=== PATIENT | female | born 1995 | race Caucasian/White ===

== ENCOUNTER 2017-03-26 11:40 | Emergency (ER) | payer OTHER, BC ==
[~2017-03-26] VITALS: Ht 157.5 cm; Wt 100.7 kg
[2017-03-26 11:49] VITALS: TEMP 36.9; Ht 157.5 cm; Wt 100.7 kg
--- NOTE | 2017-03-26 12:35 | EMERGENCY ROOM VISIT NOTE ---
History Report prepared by Franco: Nohemi Sims Under the Supervision of: Dr. Ravi Leahy M.D. 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 She states that she has had unusual lower abdominal pain since her in 2014. She has been evaluated for this pain by her ob-hide grader. This morning the patient woke up with lower abdominal cramping. Her LNMP was 4 weeks ago and she thought that her cramping was menstrual cramping. She went to the bathroom and had a bowel movement. The patient states that she had pain in her abdomen while she was straining to have a bowel movement. She denies having any rectal pain. Her stool was very hard. Since that initial bowel movement this morning she states that 15-20 minutes she develops sharp pain. She goes to the bathroom and defecates bright red blood. The patient rates her pain as a 7/10 in severity. She has also been experiencing nausea, chills, lightheadedness, and dizziness. She states that she feels much better since arriving in the ED. The patient denies vomiting, chest pain, shortness of breath, fever, vaginal bleeding, and chance of . She has never had bleeding issues in the past. She reports a personal history of constipation. Prior to her bowel movement this morning, she had not had a bowel movement for 1 week. She states that this is not really unusual for her. Other than her in 2014, the patient denies any previous abdominal surgeries. She denies any sick contacts. 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 Review of Systems See HPI for pertinent positives & negatives. A total of 10 systems reviewed and were otherwise negative. Past Medical & Surgical Medical Problems: (1) Dichorionic diamniotic twin , antepartum (2) Twins (3) Vaginal yeast infection Old medical records were reviewed. Nurse's notes were reviewed and I agree with. Family History No pertinent history stated. Social History Smoking Status: Current Every Day Smoker Drug Use: none Marital Status: Housing Status: lives with family Occupation Status: employed Current/Historical Medications No Active Prescriptions or Reported Meds Allergies Coded Allergies: Cefprozil (Verified Allergy, Unknown, _, 03/26/17) Physical Exam Vital Signs Date Time Temp Pulse Resp B/P Pulse Ox O2 Delivery O2 Flow Rate FiO2 03/26/17 15:00 78 18 131/76 98 03/26/17 14:00 77 18 133/76 97 Room Air 03/26/17 11:49 36.9 82 18 126/76 97 Room Air Physical Exam General: Well developed well nourished non ill appearing young female in no acute distress, breathing comfortably on room air. Normal speech HEENT: Normal cephalic atraumatic. Pupils are equal round and reactive to light. Sclerae are anicteric. Extraocular movements are intact. Oropharynx is pink with moist mucous membranes. No swelling of the mouth lips or tongue. Neck: Supple with a midline trachea. No meningeal signs or stiffness, no JVD or bruits. No Stridor. Chest: Clear to auscultation bilaterally. No wheezes or rhonchi. No increased work of breathing. Heart: regular rate and rhythm. Abdomen: Soft, minimally tender across the lower abdomen, nondistended without rebound guarding or rigidity. Rectal: Normal external examination. No anal fissures or hemorrhoids seen. Digital rectal exam reveals no masses. There was no stool. Mucus was mildly guaiac positive. Extremities: No cyanosis clubbing or edema. No calf tenderness or assymetry Spine/Back. Non tender to palpation. No CVA tenderness Skin: Good turgor without rashes. Neurologic exam: Cranial nerves two through 12 are intact. Motor and sensation are intact and symmetrical throughout. Medical Decision & Procedures Laboratory Results 03/26/17 12:19 Red Blood Count 5.15, Mean Corpuscular Volume 87.8, Mean Corpuscular Hemoglobin 30.9, Mean Corpuscular Hemoglobin Concent 35.2, Mean Platelet Volume 10.7, Neutrophils (%) (Auto) 79.7, Lymphocytes (%) (Auto) 13.3, Monocytes (%) (Auto) 6.5, Eosinophils (%) (Auto) 0.1, Basophils (%) (Auto) 0.2, Neutrophils # (Auto) 8.31, Lymphocytes # (Auto) 1.39, Monocytes # (Auto) 0.68, Eosinophils # (Auto) 0.01, Basophils # (Auto) 0.02 03/26/17 12:19 Test 03/26/17 12:00 03/26/17 12:19 Urine Color DK YELLOW Urine Appearance CLOUDY (CLEAR) Urine pH 6.0 (4.5-7.5) Urine Specific [place] 1.027 (1.000-1.030) Urine Protein NEG (NEG) Urine Glucose (UA) NEG (NEG) Urine Ketones TRACE (NEG) Urine Occult Blood NEG (NEG) Urine Nitrite NEG (NEG) Urine Bilirubin NEG (NEG) Urine Urobilinogen NEG (NEG) Urine Leukocyte Esterase NEG (NEG) Urine WBC (Auto) 1-5 /hpf (0-5) Urine RBC (Auto) 0-4 /hpf (0-4) Urine Hyaline Casts (Auto) 1-5 /lpf (0-5) Urine Epithelial Cells (Auto) >30 /lpf (0-5) Urine Bacteria (Auto) NEG (NEG) Urine Test NEG (NEG) White Blood Count 10.43 K/uL (4.8-10.8) Red Blood Count 5.15 M/uL (4.2-5.4) Hemoglobin 15.9 g/dL (12.0-16.0) Hematocrit 45.2 % (37-47) Mean Corpuscular Volume 87.8 fL (80-100) Mean Corpuscular Hemoglobin 30.9 pg (25-34) Mean Corpuscular Hemoglobin Concent 35.2 g/dl (32-36) Platelet Count 291 K/uL (130-400) Mean Platelet Volume 10.7 fL (7.4-10.4) Neutrophils (%) (Auto) 79.7 % Lymphocytes (%) (Auto) 13.3 % Monocytes (%) (Auto) 6.5 % Eosinophils (%) (Auto) 0.1 % Basophils (%) (Auto) 0.2 % Neutrophils # (Auto) 8.31 K/uL (1.4-6.5) Lymphocytes # (Auto) 1.39 K/uL (1.2-3.4) Monocytes # (Auto) 0.68 K/uL (0.11-0.59) Eosinophils # (Auto) 0.01 K/uL (0-0.5) Basophils # (Auto) 0.02 K/uL (0-0.2) RDW Standard Deviation 42.0 fL (36.4-46.3) RDW Coefficient of Variation 13.1 % (11.5-14.5) Immature Granulocyte % (Auto) 0.2 % Immature Granulocyte # (Auto) 0.02 K/uL (0.00-0.02) Anion Gap 7.0 mmol/L (3-11) Est Creatinine Clear Calc Drug Dose 102.3 ml/min Estimated GFR () 97.8 Estimated GFR (Non- 84.4 BUN/Creatinine Ratio 13.8 (10-20) Calcium Level 8.9 mg/dl (8.5-10.1) Total Bilirubin 0.4 mg/dl (0.2-1) Direct Bilirubin < 0.1 mg/dl (0-0.2) Aspartate Amino Transf (AST/SGOT) 14 U/L (15-37) Alanine Aminotransferase (ALT/SGPT) 17 U/L (12-78) Alkaline Phosphatase 105 U/L (45-117) Total Protein 7.4 gm/dl (6.4-8.2) Albumin 3.9 gm/dl (3.4-5.0) Lipase 75 U/L (73-393) Laboratory studies as stated above per my review. Medications Administered Medications (Trade) Dose Ordered Sig/David Route Start Time Stop Time Status Last Admin Dose Admin Sodium Chloride 1,000 ml @ 999 mls/hr Q1H1M STAT IV 03/26/17 12:50 03/26/17 13:50 DC 03/26/17 13:02 999 MLS/HR Sodium Chloride (Nss 1000ml) 1,000 ml @ 200 mls/hr Q5H ONCE IV 03/26/17 12:50 03/26/17 15:15 DC 03/26/17 13:03 200 MLS/HR ED Course 1159: Past medical records reviewed. The patient was evaluated in room A3, and a complete history and physical examination were performed. 1250: NSS 1000 ml @ 200 mls/hr IV, NSS 1000 ml @ 999 mls/hr IV 1341: At this time I performed a rectal examination in the presence of a female nurse director recreation center. Please see the physical examination for my findings. 1439: I reassessed the patient at this time. She is feeling better and resting comfortably. I discussed the results and treatment plan with the patient. I answered all pertaining questions that she had. She expressed understanding and verbalized agreement. The patient will be discharged home. Medical Decision Differential diagnoses includes constipation, anal fissures, hemorrhoid, GI bleed, infection, anemia, . Medication Reconciliation: I attest that I have personally reviewed the patient' s current medication list. Blood pressure Screening: Patient was found to have normal blood pressure on screening and does not require follow-up. This patient comes in as described above. She has a history of constipation as his hospital for about a week. She's had some crampy lower abdominal pain. She had a large bowel movement today and since then has had some blood per rectum that was bright red. She has no rectal pain. On exam, she has minimal lower tenderness no peritonitis. IV access established and blood work was obtained. She has no white count or fever to suggest infection. She has no evidence of anemia with a hemoglobin is 14 range. She has no acute electrolyte or metabolic abnormalities. She is not . She was hydrated with normal saline and remained stable. On rectal exam, I do not see any definite fissure or hemorrhoid however I suspect that she could have a small fissure somewhere. She feels good and would like to go home. I will have her rest and use stool softener and sitz bath. Return if increasing pain or bleeding, worsening of symptoms, fever or chills, any new problems or concerns. Impression Primary Impression: Lower abdominal pain Additional Impression: Rectal bleeding Scribe Attestation The scribe's documentation has been prepared under my direction and personally reviewed by me in its entirety. I confirm that the note above accurately reflects all work, treatment, procedures, and medical decision making performed by me. Departure Information Dispostion Home / Self-Care Prescriptions No Active Prescriptions or Reported Meds Referrals Humble Abarca M.D.([facility]) (PCP) Forms HOME CARE DOCUMENTATION FORM, IMPORTANT VISIT INFORMATION Patient Instructions My [facility] Additional Instructions Rest. Use a warm sitz bath if needed Use stool softeners as needed Return if: Increasing pain or bleeding, worsening of symptoms, fever or chills, any new problems or concerns Follow-up with your doctor in one or 2 days for recheck Problem Qualifiers
[2017-03-26] MEDS ORDERED: SODIUM CHLORIDE 0.9% 1000ML 1,000 ML IV ONE (12:50)
[2017-03-26] MEDS ORDERED: SODIUM CHLORIDE 0.9% 1000ML 1,000 ML IV STA (12:50)
[2017-03-26 12:59] LABS: BASO % 0.2 %; BASO ABS # 0.02 K/uL (0-0.2); COMPLETE YES; EOS % 0.1 %; HEMATOCRIT 45.2 % (37-47); IG% 0.2 %; LYMPH % 13.3 %; LYMPH ABS # 1.39 K/uL (1.2-3.4); MEAN CELL VOLUME 87.8 fL (80-100); MEAN CORPUSCULAR HEMOGLOBIN 30.9 pg (25-34); MEAN CORPUSCULAR HGB CONC 35.2 g/dl (32-36); MEAN PLATELET VOLUME 10.7 fL (7.4-10.4); MONO % 6.5 %; NEUT % 79.7 %; PLATELET COUNT 291 K/uL (130-400); RED BLOOD COUNT 5.15 M/uL (4.2-5.4); WHITE BLOOD COUNT 10.43 K/uL (4.8-10.8)
[2017-03-26 13:18] LABS: BLOOD UREA NITROGEN 13 mg/dl (7-18); BUN/CREATININE RATIO 13.8 (10-20); CALCIUM 8.9 mg/dl (8.5-10.1); CARBON DIOXIDE 26 mmol/L (21-32); CHLORIDE 108 mmol/L (98-107); CREATININE 0.95 mg/dl (0.60-1.20); GLUCOSE 100 mg/dl (70-99); POTASSIUM 4.2 mmol/L (3.5-5.1); SODIUM 141 mmol/L (136-145)
[2017-03-26 13:21] LABS: ALKALINE PHOSPHATASE 105 U/L (45-117); ALT/SGPT 17 U/L (12-78); AST/SGOT 14 U/L (15-37)
[2017-03-26 13:29] LABS: URINE APPEARANCE CLOUDY (CLEAR); URINE COLOR DK YELLOW; URINE EPITHELIAL CELL AUTO >30 /lpf (0-5); URINE NITRITE NEG (NEG); URINE SPECIFIC GRAVITY 1.027 (1.000-1.030); UROBILINOGEN NEG (NEG)
[2017-03-26 13:34] LABS: MANUAL MICROSCOPIC REQUIRED? NO; REVIEW REQ? NO; URINE BILIRUBIN NEG (NEG)
[2017-03-26 15:00] VITALS: BP 131/76; PULSE 78; O2SAT 98
== END 2017-03-26 14:57 | disposition home or self-care (01) ==
LOC: C.EDB 11:42 → C.EDA 14:57
DX: R10.30 Lower abdominal pain, unspecified (principal); K62.5 Hemorrhage of anus and rectum; F17.210 Nicotine dependence, cigarettes, uncomplicated

== ENCOUNTER → 2017-05-18 | Outpatient (CLI) | payer OTHER, BC ==
[~2017-05-18] MED LIST: ASPI-390; LEVOIUD; MECL1TAB42 PO
[2017-05-18 09:54] LABS: CHOLESTEROL/HDL RATIO 4.4
== END | disposition home or self-care (01) ==
LOC: C.LAB1850 07:21
PROVIDERS: ATTEND Physician Assistant
DX: Z00.00 Encounter for general adult medical examination without abnormal findings (principal)

== ENCOUNTER 2017-08-01 11:48 | Emergency (ER) | payer OTHER, BC ==
[2017-08-01 11:52] VITALS: TEMP 36.5; Ht 154.9 cm
--- NOTE | 2017-08-01 13:27 | EMERGENCY ROOM VISIT NOTE ---
History First contact with patient: 13:15 Chief Complaint: DIZZY Stated Complaint: DIZZY, BLURRY VISION, SHAKING Nursing Triage Summary: pt states she feels dizzy, had the rex placed approx 6 weeks and feels this would be the week she gets her period and that it is related to same. Denies fall or injury. History of Present Illness The patient is a 21 year old female who presents to the Emergency Room with complaints of dizziness x 1 week. She states that for the past week the patient has been suffering from intermittent dizziness. The patient notes that the dizziness can occur at any time even sitting and she notices it in particular at work when she is looking at a screen with her glasses for a long period of time. She does not have headache associated with the dizziness however she "feels like my head is big". Worsening dizziness with turning head left or right. She has occasional sharp pains in the back of the head but this is self limited and only lasts a couple of seconds. She has never had any N&V, abdominal pain, chest pain, palpitations with these episodes. She had a mirena placed 6 weeks prior and she has had intermittent heavy bleeding with large clots and hourly tampon changes. She has follow up for Mirena on Sunday. She has no history of arrhythmias or heart problems. Notes she has no diagnosed history of depression but "feels like I should be treated for this." Also notes a history of anxiety. Review of Systems a 10 point review of systems was completed and was negative aside from above Past Medical/Surgical History Medical Problems: (1) Dichorionic diamniotic twin , antepartum (2) Twins (3) Vaginal yeast infection Family History Cancer Diabetes mellitus Heart disease Hypertension Social History Smoking Status: Current Every Day Smoker Smokeless Tobacco Use: No Alcohol Use: occasionally Drug Use: none Marital Status: Housing Status: lives with family Occupation Status: employed Current/Historical Medications Scheduled Meclizine Hcl (Meclizine Hcl), 1 TAB PO TID Miscellaneous Medications Serwuyc-Ivcrdsyqdpcco-Bfszgshr (Excedrin Migraine) Levonorgestrel (Iud) (Mirena) Allergies Coded Allergies: Cefprozil (Verified Allergy, Unknown, _, 03/26/17) Physical Exam Vital Signs Date Time Temp Pulse Resp B/P (MAP) Pulse Ox O2 Delivery O2 Flow Rate FiO2 08/01/17 15:05 08/01/17 15:01 52 16 116/74 99 Room Air 59 129/85 56 124/75 08/01/17 13:58 69 18 118/77 98 Room Air 08/01/17 11:52 36.5 69 16 127/84 98 Room Air Physical Exam General: ambulatory, not in acute distress, obese Skin: no rashes noted, no suspicious lesions, no areas of inflammations/ lacerations/ erythema noted CVS: S1/ S2 noted, RRR, no rubs/ murmurs noted, no cyanosis RVS: Clear throughout bilaterally, not in acute respiratory distress, no wheezing/ rales/ crackles noted ENT: no erythema/ injection/ ulcerations noted in the pharynx, no lymphadenopathy Neck: Thyroid is not palpable, inspection WNL, full ROM of neck ABD: BSx4, no pain/ tenderness on palpation, no organomegaly MSK: inspection of all limbs WNL, motor and sensation intact in all limbs, no swelling/ pain on palpation of joints NVS: CN ii-xii WNL, PERRL, EOMI, sensation intact in all extremities, DTR +2 Lymph: No lymphadenopathy palpable Medical Decision & Procedures Laboratory Results 08/01/17 13:35 Red Blood Count 5.10, Mean Corpuscular Volume 87.5, Mean Corpuscular Hemoglobin 29.4, Mean Corpuscular Hemoglobin Concent 33.6, Mean Platelet Volume 11.3, Neutrophils (%) (Auto) 68.5, Lymphocytes (%) (Auto) 22.8, Monocytes (%) (Auto) 7.3, Eosinophils (%) (Auto) 0.9, Basophils (%) (Auto) 0.2, Neutrophils # (Auto) 6.05, Lymphocytes # (Auto) 2.02, Monocytes # (Auto) 0.65, Eosinophils # (Auto) 0.08, Basophils # (Auto) 0.02 08/01/17 13:35 Test 08/01/17 13:30 08/01/17 13:35 Urine Color YELLOW Urine Appearance CLEAR (CLEAR) Urine pH 5.5 (4.5-7.5) Urine Specific [place] 1.011 (1.000-1.030) Urine Protein NEG (NEG) Urine Glucose (UA) NEG (NEG) Urine Ketones NEG (NEG) Urine Occult Blood NEG (NEG) Urine Nitrite NEG (NEG) Urine Bilirubin NEG (NEG) Urine Urobilinogen NEG (NEG) Urine Leukocyte Esterase NEG (NEG) Urine Test NEG (NEG) White Blood Count 8.85 K/uL (4.8-10.8) Red Blood Count 5.10 M/uL (4.2-5.4) Hemoglobin 15.0 g/dL (12.0-16.0) Hematocrit 44.6 % (37-47) Mean Corpuscular Volume 87.5 fL (80-100) Mean Corpuscular Hemoglobin 29.4 pg (25-34) Mean Corpuscular Hemoglobin Concent 33.6 g/dl (32-36) Platelet Count 288 K/uL (130-400) Mean Platelet Volume 11.3 fL (7.4-10.4) Neutrophils (%) (Auto) 68.5 % Lymphocytes (%) (Auto) 22.8 % Monocytes (%) (Auto) 7.3 % Eosinophils (%) (Auto) 0.9 % Basophils (%) (Auto) 0.2 % Neutrophils # (Auto) 6.05 K/uL (1.4-6.5) Lymphocytes # (Auto) 2.02 K/uL (1.2-3.4) Monocytes # (Auto) 0.65 K/uL (0.11-0.59) Eosinophils # (Auto) 0.08 K/uL (0-0.5) Basophils # (Auto) 0.02 K/uL (0-0.2) RDW Standard Deviation 41.4 fL (36.4-46.3) RDW Coefficient of Variation 12.9 % (11.5-14.5) Immature Granulocyte % (Auto) 0.3 % Immature Granulocyte # (Auto) 0.03 K/uL (0.00-0.02) Anion Gap 7.0 mmol/L (3-11) Estimated GFR () 107.3 Estimated GFR (Non- 92.6 BUN/Creatinine Ratio 17.8 (10-20) Calcium Level 9.4 mg/dl (8.5-10.1) Magnesium Level 2.1 mg/dl (1.8-2.4) Troponin I < 0.015 ng/ml (0-0.045) Medications Administered Medications (Trade) Dose Ordered Sig/David Route Start Time Stop Time Status Last Admin Dose Admin Sodium Chloride 1,000 ml @ 999 mls/hr Q1H1M ONCE IV 08/01/17 13:30 08/01/17 14:30 DC 08/01/17 13:30 999 MLS/HR Meclizine HCl (Antivert Tab) 25 mg NOW STAT PO 08/01/17 14:59 08/01/17 15:00 DC 08/01/17 15:07 25 MG ECG Indication: other Rate (beats per minute): 54 Rhythm: sinus bradycardia Findings: no ectopy Comparison ECG Date: no prior available Change: T wave inversion noted in V2 ED Course 1330: Patient was assessed and evaluated by resident and appropriate w/u ordered 1345: NSS 1 L @ 999/h x1 1440: Patient reassessed and no improvement of symptoms after NSS 1450: Meclizine 25 mg PO x 1 1515: Discussed discharge with patient and agreeable Medical Decision Differential diagnosis includes but is not limited to dehydration, anemia, PE, TX, worsening myopia, UTI, . This is a 21 yo f suffering from intermittent dizziness. The patient was evaluated and in CBC no note of anemia or leukocytosis. This is reassuring considering the patient has been suffering from intermittent heavy vaginal bleeding. The BMP was unremarkable and no ÁNGEL or elevation in BUN. Magnesium was WNL and troponin was negative which is reassuring considering patient is low risk and she has been suffering from these symptoms for a week. UA did not reveal a UTI. Patient was reassessed after NSS was administered and no improvement of symptoms. Patient additionally added that dizziness is worth with movement, patient most likely suffering from BPPV and patient was d/c home with Meclizine script and recommendations for close follow up with PCP. Impression Primary Impression: Dizziness Additional Impression: BPPV (benign paroxysmal positional vertigo) Departure Information Prescriptions Meclizine Hcl (MECLIZINE HCL) 25 Mg Tab 1 TAB PO TID for 30 Days, #90 TAB Prov: Zoila Greenberg MD 08/01/17 Referrals Елена Medina CRNP (PCP) Patient Instructions My [facility] Problem Qualifiers
[2017-08-01] MEDS ORDERED: SODIUM CHLORIDE 0.9% 1000ML 1,000 ML IV ONE (13:30)
[2017-08-01] MEDS ORDERED: ASPI-390 (13:54)
[2017-08-01] MEDS ORDERED: LEVOIUD (13:54)
[2017-08-01 14:03] LABS: URINE APPEARANCE CLEAR (CLEAR); URINE BILIRUBIN NEG (NEG); URINE COLOR YELLOW; URINE NITRITE NEG (NEG); URINE PH 5.5 (4.5-7.5); URINE SPECIFIC GRAVITY 1.011 (1.000-1.030); UROBILINOGEN NEG (NEG); ZZUR CULT IF INDIC CLEAN CATCH NO
[2017-08-01 14:11] LABS: BASO % 0.2 %; BASO ABS # 0.02 K/uL (0-0.2); COMPLETE YES; EOS % 0.9 %; HEMATOCRIT 44.6 % (37-47); IG% 0.3 %; LYMPH % 22.8 %; LYMPH ABS # 2.02 K/uL (1.2-3.4); MEAN CELL VOLUME 87.5 fL (80-100); MEAN CORPUSCULAR HEMOGLOBIN 29.4 pg (25-34); MEAN CORPUSCULAR HGB CONC 33.6 g/dl (32-36); MEAN PLATELET VOLUME 11.3 fL (7.4-10.4); MONO % 7.3 %; NEUT % 68.5 %; PLATELET COUNT 288 K/uL (130-400); WHITE BLOOD COUNT 8.85 K/uL (4.8-10.8)
[2017-08-01 14:13] LABS: PREG INTERNAL NEGATIVE QC NEG CLEAR BACKGROUND; PREG INTERNAL POSITIVE QC POS CONTROL LINE
[2017-08-01 14:22] LABS: BLOOD UREA NITROGEN 16 mg/dl (7-18); BUN/CREATININE RATIO 17.8 (10-20); CALCIUM 9.4 mg/dl (8.5-10.1); CARBON DIOXIDE 25 mmol/L (21-32); CHLORIDE 106 mmol/L (98-107); CREATININE 0.88 mg/dl (0.60-1.20); GLUCOSE 93 mg/dl (70-99); MAGNESIUM 2.1 mg/dl (1.8-2.4); POTASSIUM 3.9 mmol/L (3.5-5.1); SODIUM 138 mmol/L (136-145)
[2017-08-01 14:25] LABS: MANUAL MICROSCOPIC REQUIRED? NO; REVIEW REQ? NO
[2017-08-01] MEDS ORDERED: MECLIZINE HCL 25 MG TAB PO STA (14:59)
[2017-08-01 15:01] VITALS: BP 124/75; PULSE 56; O2SAT 99
[2017-08-01] MEDS ORDERED: MECL1TAB42 PO (15:23)
--- NOTE | 2017-08-01 16:00 | EMERGENCY ROOM VISIT NOTE ---
History Report prepared by Franco: Noé Conroy Under the Supervision of: Dr. Russell Koroma D.O. First contact with patient: 13:15 Chief Complaint: DIZZY Stated Complaint: DIZZY, BLURRY VISION, SHAKING Nursing Triage Summary: pt states she feels dizzy, had the rex placed approx 6 weeks and feels this would be the week she gets her period and that it is related to same. Denies fall or injury. History of Present Illness The patient is a 21 year old female who presents to the Emergency Room with complaints of intermittent dizziness that started a week ago. She notes that she had a Mirena IUD placed 6 weeks ago, and ever since then she has had occasional headaches that are short-lived. She says that she has been taking Excedrin for the headaches. The patient adds that she has had some abnormal vaginal bleeding ever since the IUD was placed. She says that for the past week , she has felt like her "head is big", and when she looks at a screen, her vision just seems off. The patient states that her dizziness is worsened with turning her head left or right. She adds that this would be the week that she would get her period. The patient denies any loss of consciousness, chest pain, nausea, vomiting or abdominal pain. Source of History: patient Onset: Past week Position: other (global - dizziness) Timing: intermittent Modifying Factors (Worsening): movement Associated Symptoms: + headache (occasional for past 6 weeks), No LOC, No chest pain, No vomiting, No abdominal pain Note: Associated symptoms: Sensation that "head is big". Vision is off, especially when looking at a screen. Review of Systems See HPI for pertinent positives & negatives. A total of 10 systems reviewed and were otherwise negative. Past Medical & Surgical Medical Problems: (1) Dichorionic diamniotic twin , antepartum (2) Twins (3) Vaginal yeast infection Family History Cancer Diabetes mellitus Heart disease Hypertension Social History Smoking Status: Current Every Day Smoker Drug Use: none Marital Status: Housing Status: lives with family Occupation Status: employed Current/Historical Medications Scheduled Meclizine Hcl (Meclizine Hcl), 1 TAB PO TID Miscellaneous Medications Zgsihzx-Lldhjwaszkqrp-Ufmvkgop (Excedrin Migraine) Levonorgestrel (Iud) (Mirena) Allergies Coded Allergies: Cefprozil (Verified Allergy, Unknown, _, 5/29/17) Physical Exam Vital Signs Date Time Temp Pulse Resp B/P (MAP) Pulse Ox O2 Delivery O2 Flow Rate FiO2 08/01/17 15:05 08/01/17 15:01 52 16 116/74 99 Room Air 59 129/85 56 124/75 08/01/17 13:58 69 18 118/77 98 Room Air 08/01/17 11:52 36.5 69 16 127/84 98 Room Air Physical Exam CONSTITUTIONAL/VITAL SIGNS: Reviewed / noted above. GENERAL: Non-toxic in appearance. INTEGUMENTARY: Warm, dry, and [place]. HEAD: Normocephalic. EYES: without scleral icterus or trauma. ENT/OROPHARYNX: clear and moist. LYMPHADENOPATHY/NECK: Is supple without lymphadenopathy or meningismus. RESPIRATORY: Lungs clear and equal. CARDIOVASCULAR: Regular rate and rhythm. GI/ABDOMEN: Soft and nontender. No organomegaly or pulsatile mass. No rebound or guarding. Normal bowel sounds. EXTREMITIES: Warm and well perfused. BACK: No CVA tenderness. NEUROLOGICAL: Intact without focal deficits. PSYCHIATRIC: normal affect. MUSCULOSKELETAL: Normally developed with good muscle tone. Medical Decision & Procedures Laboratory Results 08/01/17 13:35 Red Blood Count 5.10, Mean Corpuscular Volume 87.5, Mean Corpuscular Hemoglobin 29.4, Mean Corpuscular Hemoglobin Concent 33.6, Mean Platelet Volume 11.3, Neutrophils (%) (Auto) 68.5, Lymphocytes (%) (Auto) 22.8, Monocytes (%) (Auto) 7.3, Eosinophils (%) (Auto) 0.9, Basophils (%) (Auto) 0.2, Neutrophils # (Auto) 6.05, Lymphocytes # (Auto) 2.02, Monocytes # (Auto) 0.65, Eosinophils # (Auto) 0.08, Basophils # (Auto) 0.02 08/01/17 13:35 Test 08/01/17 13:30 08/01/17 13:35 Urine Color YELLOW Urine Appearance CLEAR (CLEAR) Urine pH 5.5 (4.5-7.5) Urine Specific [place] 1.011 (1.000-1.030) Urine Protein NEG (NEG) Urine Glucose (UA) NEG (NEG) Urine Ketones NEG (NEG) Urine Occult Blood NEG (NEG) Urine Nitrite NEG (NEG) Urine Bilirubin NEG (NEG) Urine Urobilinogen NEG (NEG) Urine Leukocyte Esterase NEG (NEG) Urine Test NEG (NEG) White Blood Count 8.85 K/uL (4.8-10.8) Red Blood Count 5.10 M/uL (4.2-5.4) Hemoglobin 15.0 g/dL (12.0-16.0) Hematocrit 44.6 % (37-47) Mean Corpuscular Volume 87.5 fL (80-100) Mean Corpuscular Hemoglobin 29.4 pg (25-34) Mean Corpuscular Hemoglobin Concent 33.6 g/dl (32-36) Platelet Count 288 K/uL (130-400) Mean Platelet Volume 11.3 fL (7.4-10.4) Neutrophils (%) (Auto) 68.5 % Lymphocytes (%) (Auto) 22.8 % Monocytes (%) (Auto) 7.3 % Eosinophils (%) (Auto) 0.9 % Basophils (%) (Auto) 0.2 % Neutrophils # (Auto) 6.05 K/uL (1.4-6.5) Lymphocytes # (Auto) 2.02 K/uL (1.2-3.4) Monocytes # (Auto) 0.65 K/uL (0.11-0.59) Eosinophils # (Auto) 0.08 K/uL (0-0.5) Basophils # (Auto) 0.02 K/uL (0-0.2) RDW Standard Deviation 41.4 fL (36.4-46.3) RDW Coefficient of Variation 12.9 % (11.5-14.5) Immature Granulocyte % (Auto) 0.3 % Immature Granulocyte # (Auto) 0.03 K/uL (0.00-0.02) Anion Gap 7.0 mmol/L (3-11) Estimated GFR () 107.3 Estimated GFR (Non- 92.6 BUN/Creatinine Ratio 17.8 (10-20) Calcium Level 9.4 mg/dl (8.5-10.1) Magnesium Level 2.1 mg/dl (1.8-2.4) Troponin I < 0.015 ng/ml (0-0.045) Laboratory results as stated above per my review. Medications Administered Medications (Trade) Dose Ordered Sig/David Route Start Time Stop Time Status Last Admin Dose Admin Sodium Chloride 1,000 ml @ 999 mls/hr Q1H1M ONCE IV 08/01/17 13:30 08/01/17 14:30 DC 08/01/17 13:30 999 MLS/HR Meclizine HCl (Antivert Tab) 25 mg NOW STAT PO 08/01/17 14:59 08/01/17 15:00 DC 08/01/17 15:07 25 MG ECG Indication: other (dizziness) Rate (beats per minute): 54 Rhythm: sinus bradycardia Findings: no ectopy, other (no acute injury) ED Course 1327: Previous medical records were reviewed. The patient was evaluated in room B5. A complete history and physical examination was performed. 1330: Ordered NSS 1000 ml @ 999 mls/hr IV. 1459: Ordered Antivert Tab 25 mg PO. 1515: On reevaluation, the patient is resting comfortably. I discussed the results and findings with the patient. She verbalized agreement of the treatment plan. She was discharged home. Medical Decision Differential includes acute coronary syndrome, myocardial infarction, CVA, TIA, anemia, infection, pneumonia, UTI, pyelonephritis, poor nutrition, dehydration, electrolyte disturbance,hypoglycemia. This is a 21-year-old female who presents to the ED with a chief complaint of off and on dizziness as well as a sensation that her head is swollen. The patient was seen in conjunction with the resident. See her notes for additional information. The patient's vital signs here are normal. Her physical exam and neuro exam was unremarkable. Orthostatic vital signs are negative. EKG shows a sinus bradycardia. CBC, troponin, PRP, urine are unremarkable. She is not based on a test. The patient was told the results. She is felt to be stable for discharge. She was treated with meclizine by mouth. She was also given a prescription for this. Medication Reconcilliation Current Medication List: was personally reviewed by me Blood Pressure Screening Patient's blood pressure: Normal blood pressure Impression Primary Impression: Dizziness Additional Impression: BPPV (benign paroxysmal positional vertigo) Scribe Attestation The scribe's documentation has been prepared under my direction and personally reviewed by me in its entirety. I confirm that the note above accurately reflects all work, treatment, procedures, and medical decision making performed by me. Departure Information Dispostion Home / Self-Care Prescriptions Meclizine Hcl (MECLIZINE HCL) 25 Mg Tab 1 TAB PO TID for 30 Days, #90 TAB Prov: Zoila Greenberg MD 08/01/17 Referrals Елена Medina CRNP (PCP) Patient Instructions My [facility] Additional Instructions You were evaluated in the ED for your dizziness. There was no findings on the labs which is reassuring. Your urine also did not indicate that there was an infection. We would like you to trial Meclizine for dizziness. This is a medication which can help control the sensation of dizziness. We would also like you to follow up with your PCP this week. If you develop worsening or changing symptoms please return to the ED Problem Qualifiers
== END 2017-08-01 15:33 | disposition home or self-care (01) ==
LOC: C.EDB 11:49
DX: H81.10 Benign paroxysmal vertigo, unspecified ear (principal); H53.8 Other visual disturbances; F17.210 Nicotine dependence, cigarettes, uncomplicated

== ENCOUNTER → 2017-08-06 | Outpatient (CLI) | payer OTHER, BC | END | disposition home or self-care (01) | LOC: C.PAPS 09:05 | PROVIDERS: ATTEND Physician Assistant | DX: Z12.4 Encounter for screening for malignant neoplasm of cervix (principal) ==

== ENCOUNTER → 2017-08-10 | Outpatient (CLI) | payer OTHER, BC ==
[2017-08-10 13:14] LABS: LYME DISEASE AB IGG NEG (NEG); LYME DISEASE AB IGM NEG (NEG)
== END | disposition home or self-care (01) ==
LOC: C.LAB1850 10:36
PROVIDERS: ATTEND Nurse Practitioner Adult Health
DX: R42 Dizziness and giddiness (principal); H53.8 Other visual disturbances

== ENCOUNTER → 2017-08-10 | Outpatient (CLI) | payer OTHER, BC ==
--- NOTE | 2017-08-10 14:13 | MAMMOGRAPHY REPORT ---
ULTRASOUND OF LEFT BREAST: 08/10/2017 CLINICAL HISTORY: The patient reports a palpable lump in her left breast for approximately 6 months, which has not noticeably changed in size over that time. COMPARISON: No prior exams were available for comparison. TECHNIQUE: Real-time targeted ultrasound of the left breast was performed. FINDINGS: Real-time, high resolution targeted ultrasound was performed of the area of the palpable l ump pointed out by the patient, in the left breast at approximately 6:00, 5 cm from the nipple. At t he site of the palpable lump there is sonographically normal fatty tissue, without evidence of a susp icious mass or other suspicious sonographic abnormality. IMPRESSION: ACR BI-RADS CATEGORY 2: BENIGN No suspicious sonographic abnormality at the site of the palpable left breast lump pointed out by the patient. There is no sonographic evidence of malignancy. Recommend clinical follow-up. The patient was verbally notified of the results. Ludivina Rodriguez M.D. /:08/10/2017 10:28:41 [employer] Worker: Charleen DIAZ)(Andrea), [facility] letter sent: Normal 1/2 BI-RADS Code: ACR BI-RADS Category 2: Benign
== END | disposition home or self-care (01) ==
LOC: C.MAMM 10:10
PROVIDERS: ATTEND Physician Assistant
DX: N63.20 Unspecified lump in the left breast, unspecified quadrant (principal)

== ENCOUNTER → 2017-08-21 | Outpatient (CLI) | payer OTHER, BC ==
[~2017-08-21] MED LIST changes: +GADAVIST IV PRN
--- NOTE | 2017-08-22 14:50 | DIAGNOSTIC IMAGING REPORT ---
Brain and internal auditory canal MRI WITH AND WITHOUT CONTRAST HISTORY: R42 [id number] Blurred vision PATIENT HAS HISTORY OF DIZZINESS TECHNIQUE: Multiplanar multisequence MRI of the brain and internal auditory canals were performed both before and after the intravenous administration of contrast. COMPARISON STUDY: None. FINDINGS: There are no areas of restricted diffusion to suggest acute infarction. The midline structures are intact. The paranasal sinuses are clear. The mastoid air cells are clear. The ventricles and sulci are within normal limits for age. There is no mass, hematoma, midline shift. The major vascular flow-voids at the skull base are well maintained. Postcontrast sequences show no areas of abnormal enhancement. No abnormal enhancement or masses within the internal auditory canals. The 7th and 8th cranial nerves are normal in course and caliber. IMPRESSION: No acute intracranial abnormality. Normal bilateral internal auditory canals. Electronically signed by: Mina Nguyen M.D. 08/22/2017 2:48 PM Dictated Date/Time: 08/21/2017 10:57 PM
== END | disposition home or self-care (01) ==
LOC: C.MRI 20:23
PROVIDERS: ATTEND Physician Assistant
DX: H53.8 Other visual disturbances (principal); R42 Dizziness and giddiness

== ENCOUNTER → 2017-09-26 | Outpatient (CLI) | payer OTHER, BC ==
[~2017-09-26] MED LIST changes: -GADAVIST IV PRN; -MECL1TAB42 PO
[2017-09-26 18:11] LABS: URINE APPEARANCE CLOUDY (CLEAR); URINE BILIRUBIN NEG (NEG); URINE COLOR YELLOW; URINE EPITHELIAL CELL AUTO >30 /lpf (0-5); URINE NITRITE NEG (NEG); URINE PH 6.5 (4.5-7.5); URINE SPECIFIC GRAVITY 1.022 (1.000-1.030); UROBILINOGEN NEG (NEG)
[2017-09-26 18:14] LABS: MANUAL MICROSCOPIC REQUIRED? NO; REVIEW REQ? NO
== END | disposition home or self-care (01) ==
LOC: C.LABSPEC 17:26
PROVIDERS: ATTEND Physician Assistant
DX: R39.9 Unspecified symptoms and signs involving the genitourinary system (principal); L29.8 Other pruritus

== ENCOUNTER → 2017-10-08 | Outpatient (CLI) | payer OTHER, BC ==
[2017-10-11 14:26] LABS: CHLAMYDIA TRACH RNA*** NOT DETECTED (NOT DETECTED); GC (NEIS GONORRHOEAE)RNA** NOT DETECTED (NOT DETECTED); TRICHOMONAS VAGINALIS RNA** NOT DETECTED (NOT DETECTED)
== END | disposition home or self-care (01) ==
LOC: C.LABSPEC 15:38
PROVIDERS: ATTEND Obstetrics & Gynecology
DX: N76.0 Acute vaginitis (principal)

== ENCOUNTER → 2017-10-17 | Outpatient (CLI) | payer OTHER, BC | END | disposition home or self-care (01) | LOC: C.LABSPEC 16:55 | PROVIDERS: ATTEND Physician Assistant | DX: R39.9 Unspecified symptoms and signs involving the genitourinary system (principal) ==

== ENCOUNTER → 2017-10-18 | Outpatient (CLI) | payer OTHER, BC ==
--- NOTE | 2017-10-18 14:43 | DIAGNOSTIC IMAGING REPORT ---
KUB CLINICAL HISTORY: 22 years-old Female presenting with CVA TENDERNESS. TECHNIQUE: Single supine view of the abdomen was obtained. COMPARISON: None. FINDINGS: Moderate stool burden primarily in the right and transverse colon. Possibly of small bowel gas, nonspecific. No gross evidence of bowel obstruction or free intraperitoneal gas. An intrauterine device projects over the pelvis. No calcifications project over the kidneys allowing for bowel gas and stool. No phleboliths are apparent. Osseous structures normal. IMPRESSION: 1. Moderate stool burden could suggest constipation. No bowel obstruction or free air. 2. No radiographic evidence of nephrolithiasis. Electronically signed by: Rupert Deal M.D. 10/18/2017 2:42 PM Dictated Date/Time: 10/18/2017 2:41 PM
[2017-10-18 16:22] LABS: BASO % 0.3 %; BASO ABS # 0.03 K/uL (0-0.2); COMPLETE YES; EOS % 1.4 %; HEMATOCRIT 42.9 % (37-47); IG% 0.2 %; LYMPH % 32.3 %; LYMPH ABS # 3.05 K/uL (1.2-3.4); MEAN CELL VOLUME 90.3 fL (80-100); MEAN CORPUSCULAR HEMOGLOBIN 30.9 pg (25-34); MEAN CORPUSCULAR HGB CONC 34.3 g/dl (32-36); MEAN PLATELET VOLUME 11.1 fL (7.4-10.4); MONO % 9.4 %; NEUT % 56.4 %; PLATELET COUNT 306 K/uL (130-400); RED BLOOD COUNT 4.75 M/uL (4.2-5.4); WHITE BLOOD COUNT 9.44 K/uL (4.8-10.8)
[2017-10-18 16:37] LABS: ALT/SGPT 17 U/L (12-78); AST/SGOT 9 U/L (15-37); BLOOD UREA NITROGEN 15 mg/dl (7-18); BUN/CREATININE RATIO 19.6 (10-20); CALCIUM 8.5 mg/dl (8.5-10.1); CARBON DIOXIDE 28 mmol/L (21-32); CHLORIDE 104 mmol/L (98-107); CREATININE 0.75 mg/dl (0.60-1.20); GLUCOSE 106 mg/dl (70-99); POTASSIUM 4.2 mmol/L (3.5-5.1); SODIUM 135 mmol/L (136-145)
[2017-10-18 16:40] LABS: ALB/GLOB RATIO 1.1 (0.9-2); ALKALINE PHOSPHATASE 81 U/L (45-117)
== END | disposition home or self-care (01) ==
LOC: C.RAD1850 14:32
PROVIDERS: ATTEND Physician Assistant
DX: M54.9 Dorsalgia, unspecified (principal)

== ENCOUNTER → 2017-10-30 | Outpatient (CLI) | payer OTHER, BC ==
[~2017-10-30] MED LIST changes: +CITA40TA4 PO; +KETO10TA PO; +LEVO1IUD2; -LEVOIUD
--- NOTE | 2017-10-30 11:27 | DIAGNOSTIC IMAGING REPORT ---
L-SPINE MIN 4 VIEWS ROUTINE CLINICAL HISTORY: Costovertebral angle tenderness. COMPARISON: None FINDINGS: Incidental note is made of an intrauterine device. There is slight leftward curvature of the lumbar spine. Vertebral body heights are maintained. There is no fracture or suspicious lesion. There is minimal disc space narrowing and ossified ptosis at L5-S1. Bowel gas pattern is normal. No renal calculi are identified. IMPRESSION: 1. No lumbar spine fracture. 2. Minimal disc space narrowing and osteophytosis at L5-S1. 2. Slight leftward curvature of the lumbar spine which may be positional. Electronically signed by: Haja Garzon M.D. 10/30/2017 11:26 AM Dictated Date/Time: 10/30/2017 11:24 AM
== END | disposition home or self-care (01) ==
LOC: C.RAD1850 11:03
PROVIDERS: ATTEND Physician Assistant
DX: M54.9 Dorsalgia, unspecified (principal)

== ENCOUNTER 2017-11-08 17:16 | Emergency (ER) | payer OTHER, BC ==
[~2017-11-08] VITALS: Ht 157.5 cm; Wt 99.6 kg
[~2017-11-08 17:16] MED LIST changes: -CITA40TA4 PO; -KETO10TA PO
[2017-11-08 17:40] VITALS: TEMP 36.7; Ht 157.5 cm; Wt 99.6 kg
--- NOTE | 2017-11-08 18:11 | EMERGENCY ROOM VISIT NOTE ---
ED Visit Note First contact with patient: 17:43 CHIEF COMPLAINT: Low back pain HISTORY OF PRESENT ILLNESS: This is a 22-year-old female that presents to the emergency department with complaint of low back pain. Patient states that she has had chronic low back pain issues over the past 2 years, but has been much worse over the past 1-2 months. She saw a chiropractor initially, however her symptoms seemed to get worse, so she saw her primary care provider who gave her a course of steroids and had her do physical therapy. She states she started physical therapy last week and her symptoms have become progressively worse the last 2 days. She reports pain shooting into her left buttock and the back of her leg, increased weakness in her left leg, and numbness along the inside of her thigh and in her vaginal area since last night. She saw her PCP today who felt her symptoms were concerning and sent her to the ER for further evaluation. She denies any bowel or bladder dysfunction. No recent direct trauma to the lower back. No vomiting or abdominal pain. No fevers or chills. She reports that she had an x-ray of her lumbar spine a few weeks ago that showed some mild disc problems. REVIEW OF SYSTEMS: A complete 10 point review of systems was reviewed with the patient with pertinent positives and negatives as per history of present illness. All else were negative. PMH: The patient is healthy; there is no significant medical or surgical history. SOCIAL HISTORY: Patient lives at home. She denies tobacco use. ALLERGIES: Reviewed in chart. PHYSICAL EXAM: Vital Signs: Reviewed Nurse's notes. CONSTITUTIONAL: Pleasant and cooperative. No acute distress, but obviously uncomfortable and in pain throughout exam. Well appearing and well nourished. HEENT: Normocephalic, atraumatic. Pupils equal, round and reactive to light, EOMI. TMs normal. Pharynx normal. Moist mucous membranes. NECK: Supple, full active range of motion without discomfort. RESPIRATORY: Clear to auscultation bilaterally with no wheezing, crackles, rhonchi or stridor. Equal expansion bilaterally. CARDIOVASCULAR: Regular rate and rhythm with no murmurs, rubs or gallops. Normal peripheral perfusion. No edema. GASTROINTESTINAL: Soft, nontender, nondistended. No CVA tenderness. No palpable masses or HSM. Bowel sounds present in all quadrants. Patient declined digital rectal exam. BACK: Midline tenderness of the L4-S1 region of the spine. No tenderness of the paraspinous muscles in the lumbar area. Limited range of motion of the lower back due to pain. LEGS: 5/5 strength of the right leg including dorsi-flexion and plantar flexion of the feet, 4/5 strength of the left leg. Decreased sensation in the left dorsal foot, medial calf and medial thigh. Positive straight leg raise on the left. Normal and symmetrical knee and ankle reflexes. MUSCULOSKELETAL: Full range of motion of all joints without discomfort. INTEGUMENTARY: No rash or other significant dermatologic conditions noted. NEUROLOGIC: Alert and oriented X 4 with normal affect. Cranial nerves II-XII grossly intact. Normal speech. IMAGING: LUMBAR SPINE W/O CONTRAST HISTORY: Back pain. Neuropathy. LBP, saddle parasthesia, numb/weak left leg, eval cauda equina TECHNIQUE: Multiplanar multisequence MRI of the lumbar spine was performed without the use of contrast. COMPARISON: None. FINDINGS: For the purpose of the report the L5-S1 disc space will be located on axial image 27 of 30. Significant degenerative disc change L5-S1. Large posterior disc herniation at this site with probable extruded disc fragment. L1-L2: No significant central canal or neural foraminal narrowing. L2-L3: No significant central canal or neural foraminal narrowing. L3-L4: No significant central canal or neural foraminal narrowing. L4-L5: No significant central canal or neural foraminal narrowing. L5-S1: Large left posterior disc herniation. This is maximum dimensions of 1.7 x 1.0 cm. There is an extruded disc fragment displacing the thecal sac to the right and measuring an additional 1 cm. There is considerable narrowing of the left neural foramina. IMPRESSION: 1. Large left central posterior disc herniation L5-S1 with extensive associated extruded disc fragment. 2. Dimensions of the disc herniation are 1.7 x 1.0 cm, with the extruded disc fragment related to adjacent to the disc herniation and measuring 1 cm. 3. These findings create considerable impact upon the thecal sac as well as severe narrowing of the left neural foramina. EMERGENCY DEPARTMENT COURSE: I examined the patient. Differential diagnosis includes lumbar sprain/strain, lumbar radiculopathy, sciatica, disc herniation, cauda equina syndrome, among others. The patient has notable weakness in the left leg compared to the right, as well as decreased sensation along the medial distribution of the left thigh and calf. The patient is also describing saddle paresthesia, concerning for possible cauda equina or other compressive disorder. UA and urine ordered, these are negative. MRI of the lumbar spine does show a large left central posterior disc herniation at the L5- S1 level with extensive associated extruded disc fragment, as well as displacement of the thecal sac to the right and narrowing of the left neural foramina. I spoke over the phone with Dr. Amin after, orthopedic-spine surgery regarding the MRI results. He recommended giving the patient a dose of steroids and Toradol, and will arrange for the patient to be seen in clinic tomorrow for follow-up. He did not feel any urgent surgical intervention was warranted at this time. I updated the patient on all results and plan for discharge, specifically regarding her discharge follow-up plan with orthopedic- spine surgery, she verbalized understanding. She did report improved pain after Toradol and Decadron. She reports just finishing a prednisone taper 4 days ago, therefore an additional steroid taper was not ordered at this time, we will defer to orthopedics, she was instructed to discuss this at her appointment tomorrow. The patient was also given strict return precautions should her symptoms worsen, she verbalized understanding. The patient was discharged home in stable condition and ambulatory. Medication Reconciliation: I attest that I have personally reviewed the patient' s current medication list. Blood pressure screening: The patient was found to have an elevated blood pressure, this was felt to be situational due to her pain. I discussed the patient with Dr. Koroma, who agrees with my assessment and plan. Problem List Medical Problems: (1) Dichorionic diamniotic twin , antepartum Status: Resolved (2) Twins Status: Resolved (3) Vaginal yeast infection Status: Resolved Current/Historical Medications Scheduled Citalopram (Citalopram Hydrobromide), 20 MG PO QAM Ketorolac Tromethamine (Toradol), 10 MG PO Q6H Miscellaneous Medications Levonorgestrel (Iud) (Mirena) Allergies Coded Allergies: Cefprozil (Verified Allergy, Unknown, _, 11/08/17) Vital Signs Date Time Temp Pulse Resp B/P (MAP) Pulse Ox O2 Delivery O2 Flow Rate FiO2 11/08/17 23:07 76 18 125/88 96 11/08/17 17:40 36.7 78 16 131/84 98 Room Air Laboratory Results Test 11/08/17 18:18 Urine Color YELLOW Urine Appearance CLEAR (CLEAR) Urine pH 5.5 (4.5-7.5) Urine Specific [place] 1.024 (1.000-1.030) Urine Protein NEG (NEG) Urine Glucose (UA) NEG (NEG) Urine Ketones NEG (NEG) Urine Occult Blood NEG (NEG) Urine Nitrite NEG (NEG) Urine Bilirubin NEG (NEG) Urine Urobilinogen NEG (NEG) Urine Leukocyte Esterase NEG (NEG) Urine Test NEG (NEG) Medications Administered Medications (Trade) Dose Ordered Sig/David Route Start Time Stop Time Status Last Admin Dose Admin Ketorolac Tromethamine (Toradol Inj) 60 mg NOW STAT IM 11/08/17 22:20 11/08/17 22:21 DC 11/08/17 22:33 60 MG Dexamethasone Sodium Phosphate (Dexamethasone Inj Pf) 10 mg STK-MED ONCE .ROUTE 11/08/17 22:28 11/08/17 22:29 DC 11/08/17 22:32 10 MG Departure Information Impression Primary Impression: Posterior herniation of lumbar disc Additional Impression: Lumbar radiculopathy, acute Dispostion Home / Self-Care Condition GOOD Prescriptions Ketorolac Tromethamine (TORADOL) 10 Mg Tab 10 MG PO Q6H for Pain for 5 Days, #20 TAB Prov: Enma Encarnacion, [employer] 11/08/17 Referrals Milla Langford PA-C (PCP) Juan Carlos Valencia, DO Patient Instructions ED Sciatica, My [facility] Additional Instructions You were seen in the emergency Department today for your low back pain and numbness. Your MRI of your lumbar spine today shows a bulging disc in the L5-S1 space ( base of your lower spine) that is putting pressure on the nerves in the lower spine causing your pain and numbness. This does not require urgent surgery, but may need a surgical intervention at some point. You have been referred to the orthopedic-spine surgeon for further management. Please call , the orthopedic-spine clinic tomorrow (11/09/17) in the morning after 8 AM to schedule an appointment for tomorrow to follow-up. Ask for Meredith Thurman. Take it easy for the next few days, no strenuous activity, heavy lifting, or bending/twisting motions, to allow your back to rest. Alternate heat and ice to your lower back for comfort. After heat, you may do gentle stretching and massage to the low back. You have been prescribed Toradol 10 mg, take 1 tablet every 6 hours as needed for pain. Do not take other NSAIDs while you are taking this medication. Continue to follow up with your PCP in the next few days for additional management. Please return to the ER for worsening symptoms including severe worsening back pain, incontinence of bowel or bladder function, high fevers, or complete loss of feeling or movement of leg(s). Work Instructions Return To Work: 2 days Problem Qualifiers
[2017-11-08] MEDS ORDERED: CITA40TA4 PO (18:28)
--- NOTE | 2017-11-08 21:05 | DIAGNOSTIC IMAGING REPORT ---
LUMBAR SPINE W/O CONTRAST HISTORY: Back pain. Neuropathy. LBP, saddle parasthesia, numb/weak left leg, eval cauda equina TECHNIQUE: Multiplanar multisequence MRI of the lumbar spine was performed without the use of contrast. COMPARISON: None. FINDINGS: For the purpose of the report the L5-S1 disc space will be located on axial image 27 of 30. Significant degenerative disc change L5-S1. Large posterior disc herniation at this site with probable extruded disc fragment. L1-L2: No significant central canal or neural foraminal narrowing. L2-L3: No significant central canal or neural foraminal narrowing. L3-L4: No significant central canal or neural foraminal narrowing. L4-L5: No significant central canal or neural foraminal narrowing. L5-S1: Large left posterior disc herniation. This is maximum dimensions of 1.7 x 1.0 cm. There is an extruded disc fragment displacing the thecal sac to the right and measuring an additional 1 cm. There is considerable narrowing of the left neural foramina. IMPRESSION: 1. Large left central posterior disc herniation L5-S1 with extensive associated extruded disc fragment. 2. Dimensions of the disc herniation are 1.7 x 1.0 cm, with the extruded disc fragment related to adjacent to the disc herniation and measuring 1 cm. 3. These findings create considerable impact upon the thecal sac as well as severe narrowing of the left neural foramina. The above report was generated using voice recognition software. It may contain grammatical, syntax or spelling errors. Electronically signed by: David Jefferson M.D. 11/08/2017 9:04 PM Dictated Date/Time: 11/08/2017 9:00 PM
[2017-11-08] MEDS ORDERED: KETOROLAC TROMETHAMINE 30 MG/ML VIAL IV STA (21:59)
[2017-11-08] MEDS ORDERED: DEXAMETHASONE SOD INJ 4 MG/ML VIAL IV STA (21:59)
[2017-11-08] MEDS ORDERED: KETOROLAC TROMETHAMINE 60 MG/2 ML VIAL IM STA (22:20)
[2017-11-08] MEDS ORDERED: DEXAMETHASONE SOD INJ 4 MG/ML 5 ML VIAL IM STA (22:20)
[2017-11-08] MEDS ORDERED: DEXAMETHASONE **PF** INJ 10 MG/ML VIAL ONE (22:28)
[2017-11-08] MEDS ORDERED: KETO10TA PO (22:33)
[2017-11-08 23:07] VITALS: BP 125/88; PULSE 76; O2SAT 96
== END 2017-11-08 23:08 | disposition home or self-care (01) ==
LOC: C.EDB 17:17 → C.EDD 23:08
DX: M51.17 Intervertebral disc disorders with radiculopathy, lumbosacral region (principal); Z79.899 Other long term (current) drug therapy

== ENCOUNTER → 2018-05-30 | Outpatient (CLI) | payer OTHER, BC ==
[~2018-05-30] MED LIST changes: -ASPI-390; +CITA40TA4 PO
== END | disposition home or self-care (01) ==
LOC: C.LABBC 13:18
PROVIDERS: ATTEND Physician Assistant
DX: N39.0 Urinary tract infection, site not specified (principal); R39.15 Urgency of urination; R35.0 Frequency of micturition

== ENCOUNTER 2021-06-27 05:32 | Inpatient (IN) ==
--- NOTE | 2021-06-17 10:08 | Anesthesiology Consultation ---
Date of Service June 17, 2021 Assessment & Plan (1) Encounter for pre-operative examination: Chart Review Chart Review: data entry initiated -We will leave BSG to anesthesiologist/OB discretion DOS secondary to gestational diabetes Per nursing assessment 06/17/2021, patient denies any recent travel. No known Covid infection in the past 90 days. Patient is vaccinated for Covid. No known Covid positive contacts or Covid related symptoms. Preop Covid testing scheduled 06/23/21= will await results History Surgery Operation Date: 06/27/21 07:30 Proposed Procedures p Section in LD - Oswaldo Purdy MD s Bilateral Tubal Ligation - Oswaldo Purdy MD Height/Weight Height: 5 ft 1 in Weight: 124.738 kg Allergies Allergy/AdvReac Type Severity Reaction Status Date / Time cefprozil Allergy Unknown Hives Verified 06/17/21 08:10 Medications Home Medications Medication Instructions Recorded Confirmed Last Taken fluticasone propionate 50 1 spray INTRANASAL DAILY PRN 07/06/20 06/17/21 04/12/21 mcg/actuation nasal spray,suspension (Flonase Allergy Relief) loratadine 10 mg tablet (Claritin) 10 mg PO DAILY PRN 07/06/20 06/17/21 04/11/21 prenat.vits,mark,[id number] 1 tab PO DAILY 11/10/20 06/17/21 06/07/21 22:00 acetaminophen 500 mg tablet 2,000 mg PO Q6H PRN 02/05/21 06/17/21 06/08/21 08:00 (Tylenol Extra Strength) acetone (urine) test (Ketone Urine #50 ea 02/18/21 06/10/21 Unknown Test) blood sugar diagnostic (OneTouch #150 ea 02/18/21 06/10/21 Unknown Verio test strips) lancets 33 gauge (OneTouch Delica #150 ea 02/18/21 06/10/21 Unknown Plus Lancet) docusate sodium 100 mg capsule 100 mg PO DAILY cap 05/11/21 06/17/21 05/17/21 (Colace) blood-glucose meter (OneTouch #1 ea 06/14/21 Unknown Verio Meter) citalopram 10 mg tablet 10 mg PO QAM 06/17/21 06/17/21 Unknown meloxicam 7.5 mg tablet 7.5 mg PO DAILY PRN 06/17/21 06/17/21 Unknown Past Medical History Medical History Anxiety Benign paroxysmal positional vertigo hx of Depression Gestational diabetes Hiatal hernia Lumbar disc herniation with radiculopathy Past Family History Family History Brother Asthma Mother Deafness Pre-diabetes Myocardial infarction Grandfather Deafness Heart disease Father Hypertension Family/Other Cancer Diabetes Kidney disease Grandmother (Maternal) Myocardial infarction Denies family history of Ovarian cancer Prostate cancer Breast cancer Colorectal cancer Past Surgical History Surgical History H/O cosmetic surgery face secondary to dog bite Hx of section S/P wisdom tooth extraction Social History Smoking Status: Former smoker Smoking cigarettes per day: 5 Do You Dip or Chew Tobacco: No Smoking End Date: not while Hx Alcohol Use: Yes (not while ) Hx Substance Use: No substance use type: does not use Lab Results Anesthesia Preop Results Results Anesthesia Widget: Na 133 mmol/L (136-145) L 06/07/21 K 3.6 mmol/L (3.5-5.1) 06/07/21 Cl 108 mmol/L (98-107) H 06/07/21 CO2 24 mmol/L (21-32) 06/07/21 BUN 5 mg/dl (7-18) L 06/07/21 Creat 0.64 mg/dl (0.6-1.2) 06/07/21 Glucose Level 111 mg/dl (70-99) H 06/07/21 Urine Color Dark Yellow 05/15/21 Urine Appearance Clear (Clear) 05/15/21 Urine pH 6.0 (4.5-7.5) 05/15/21 Urine Specific [place] 1.026 (1.000-1.030) 05/15/21 Urine Protein Trace (Negative) H 05/15/21 Urine Glucose (UA) Negative (Negative) 05/15/21 Urine Ketones 3+ (Negative) H 05/15/21 Urine Blood Negative (Negative) 05/15/21 Urine Nitrite Negative (Negative) 05/15/21 Urine Bilirubin Negative (Negative) 05/15/21 Urine Urobilinogen Negative (Negative) 05/15/21 Urine Leukocyte Esterase Negative (Negative) 05/15/21 Urine WBC (Auto) 1-5 /hpf (0-5) 05/15/21 Urine RBC (Auto) 0-4 /hpf (0-4) 05/15/21 Urine Hyaline Casts (Auto) 1-5 /lpf (0-5) 05/15/21 Urine Epithelial Cells (Auto) >30 /lpf (0-5) H 05/15/21 Urine Bacteria (Auto) Negative (Negative) 05/15/21 Testing Electrocardiogram Date: 07/08/20 Findings: + NSR @ (96bpm) Possible left atrial enlargement. When compared to EKG from August 01, 2017ventricular rate has increased by 42 bpm per cardio. Chest X-Ray Date: 07/08/20 Findings: + NAD
[2021-06-27] MEDS ORDERED: GENTAMICIN CONSULT ACTIVE PRN (05:44)
[2021-06-27] MEDS ORDERED: LACTATED RINGER'S 1,000 ML IV SCH ×2 (05:45→09:30)
[2021-06-27] MEDS ORDERED: CITRIC ACID/SODIUM CITRATE 15 ML UDC PO SCH (06:00)
[2021-06-27] MEDS ORDERED: GENTAMICIN SULFATE 400 MG in DEXTROSE 5% 100 ML IV SCH (06:00)
[2021-06-27] MEDS ORDERED: CLINDAMYCIN 900 MG in DEXTROSE 5% 50 ML IV SCH (06:00)
[2021-06-27 06:17] LABS: Hematocrit (blood only) 34.3 % (37-47); Hemoglobin 11.6 g/dL (12.0-16.0); Mean Corpuscular Hemoglobin 30.9 pg (25-34); Mean Corpuscular Hgb Conc 33.8 g/dL (32-36); Mean Corpuscular Volume 91.2 fL (80-100); Mean Platelet Volume 10.8 fL (7.4-10.4); Platelet Count 296 K/uL (130-400); RDW Coefficient of Variation 14.4 % (11.5-14.5); RDW Standard Deviation 47.4 fL (36.4-46.3); Red Blood Count 3.76 M/uL (4.2-5.4); White Blood Count 13.42 K/uL (4.8-10.8)
[2021-06-27] MEDS ORDERED: OXYTOCIN 10 UNITS/ML VIAL ONE (06:38)
[2021-06-27] MEDS ORDERED: fentaNYL citrate 100 MCG/2 ML VIAL ONE (06:39)
[2021-06-27] MEDS ORDERED: MoRPHine SULFATE PF 1 MG/ML 10 ML AMP/VIAL ONE (06:39)
--- NOTE | 2021-06-27 07:06 | History & Physical Report ---
Date of Service June 27, 2021 Assessment & Plan (1) Breech presentation: (2) Previous delivery affecting , antepartum: (3) Encounter for supervision of normal in multigravida, antepartum: Plan: 25 yo at 39.0 weeks GA. Repeat c-sections with Hx of prior x1 1. Fetus: Reactive NST 2. Delivery: Repeat w/ BTL. Consents signed. Discussed increased risk due to repeat and BMI >50. 3. Vitals: WNL Admission and Anticipated Discharge Date Admission Date: June 27, 2021 History of Present Illness Primary Care Provider: Madelin Morejon MD 25yo at 39.0 weeks GA. Presents for repeat . Patient has hx of prior LTCS for twin . otherwise complicated by BMI >50, breech presentation and GDM. Plan for BTL Allergies Allergy/AdvReac Type Severity Reaction Status Date / Time cefprozil Allergy Unknown Hives Verified 06/24/21 15:59 Home Medications Medication Instructions Recorded Confirmed Type fluticasone propionate 50 1 spray INTRANASAL DAILY PRN 07/06/20 06/24/21 History mcg/actuation nasal spray,suspension (Flonase Allergy Relief) loratadine 10 mg tablet (Claritin) 10 mg PO DAILY PRN 07/06/20 06/24/21 History prenat.vits,mark,[id number] 1 tab PO DAILY 11/10/20 06/27/21 History acetaminophen 500 mg tablet 1,000 mg PO Q6H PRN 02/05/21 06/27/21 History (Tylenol Extra Strength) acetone (urine) test (Ketone Urine #50 ea 02/18/21 06/24/21 Rx Test) blood sugar diagnostic (OneTouch #150 ea 02/18/21 06/24/21 Rx Verio test strips) lancets 33 gauge (OneTouch Delica #150 ea 02/18/21 06/24/21 Rx Plus Lancet) docusate sodium 100 mg capsule 100 mg PO DAILY cap 05/11/21 06/24/21 History (Colace) blood-glucose meter (OneTouch #1 ea 06/14/21 06/24/21 Rx Verio Meter) citalopram 10 mg tablet 10 mg PO QAM 06/17/21 06/24/21 History Patient History Medical History Anxiety Benign paroxysmal positional vertigo hx of Depression Gestational diabetes Hiatal hernia Lumbar disc herniation with radiculopathy Surgical History H/O cosmetic surgery face secondary to dog bite Hx of section S/P wisdom tooth extraction Family History Brother Asthma Mother Deafness Pre-diabetes Myocardial infarction Grandfather Deafness Heart disease Father Hypertension Family/Other Cancer Diabetes Kidney disease Grandmother (Maternal) Myocardial infarction Denies family history of Ovarian cancer Prostate cancer Breast cancer Colorectal cancer Social History Smoking Status: Former smoker Tobacco Type: Cigarettes packs per day: 0.5; Cigarettes Per Day: 5; Smoking End Date: not while ; Second Hand Exposure: No; Do You Dip or Chew Tobacco: No; Tobacco Cessation Education Requested by Patient: No Hx Alcohol Use: Yes (not while ) Hx Substance Use: No Preferred Language: Guatemalan Communication Ability: Effective Visual Impairment: No Limitations Hearing Ability: Normal Cnc Applications Engineer Required: No Beliefs That Will Affect Care: None marital status: marital status details: Mat Black (32) [phone] Current Living Situation: Family Current Living Situation Comment: lives with spouse, 2 daughters, dogs current occupational status: employed 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 [employer] Other Information That Helps Us Care for You: No Feels Safe at Home: Yes Safety Concerns: Feels Safe At This Time Dental Care, Regularly: Yes Physical Activity Frequency: Does not Exercise Seatbelt Use: always Sunscreen Use: Yes Sexual Activity: has been sexually active within the last 12 months Assistive Devices: Contacts and Glasses Physical Exam Constitutional: WD/WN, vitals as above Respiratory: normal respiratory effort, lungs clear to auscultation Cardiovascular: RRR, no murmur, no edema Gastrointestinal (Abdomen): Inspection/Auscultation: abdomen not distended Percussion/Palpation: abdomen soft; abdomen nontender, no guarding and abdomen not rigid Psychiatric: A+Ox3, euthymic affect Genitourinary: OB Exam Abdomen: + breech OB Exam Monitor Tracing: + external FHT monitor used, + external uterine monitor used, + category I and + normal FHT variability; no early decelerations present, no late decelerations present and no variable decelerations Results & Data ([facility]) Vital Signs (Past 12 Hours) Vital Signs Temp Pulse Resp BP 06/27/21 05:49 36.7 C 18 06/27/21 05:43 116 H 121/67 Coding Level of Care Code None Diagnoses Breech presentation O32.1XX0 Previous delivery affecting , antepartum O34.219 Encounter for supervision of normal in multigravida, antepartum Z34.80
[2021-06-27] MEDS ORDERED: NALOXONE HCL 0.08 MG in SYRINGE 1.8 ML IV PRN (07:11)
[2021-06-27] MEDS ORDERED: KETOROLAC 30 MG/ML VIAL IV PRN (07:11)
[2021-06-27] MEDS ORDERED: NALOXONE HCL 1 MG in SODIUM CHLORIDE 0.9% 1000ML 1,000 ML IV PRN (07:11)
[2021-06-27] MEDS ORDERED: NALOXONE HCL 0.4 MG/1 ML VIAL/CARP IV PRN (07:11)
[2021-06-27] MEDS ORDERED: diphenhydrAMINE 50 MG/ML VIAL IV PRN (07:11)
[2021-06-27] MEDS ORDERED: NALBUPHINE HCL INJ 10 MG/ML AMP IV PRN (07:11)
[2021-06-27] MEDS ORDERED: ePHEDrine sulfate 50 MG/ML AMP IV PRN (07:11)
[2021-06-27] MEDS ORDERED: LACTATED RINGER'S 500 ML IV PRN (07:11)
[2021-06-27] MEDS ORDERED: MoRPHine SULFATE PF 1 MG/ML 10 ML AMP/VIAL INT SPINAL ONE (07:11)
[2021-06-27] MEDS ORDERED: MoRPHine SULFATE 2 MG/ML CARP IV PRN (07:11)
[2021-06-27] MEDS ORDERED: ONDANSETRON INJ 2 MG/ML 2 ML VIAL IV PRN (07:11)
[2021-06-27] MEDS ORDERED: SODIUM CHLORIDE 0.9% 1000ML 1,000 ML IV SCH (07:15)
[2021-06-27] MEDS ORDERED: NO NARCOTICS OR SEDATIVES SCH (07:15)
[2021-06-27] MEDS ORDERED: PHENYLEPHRINE 100MCG/ML 5ML SYR ONE (08:26)
[2021-06-27] MEDS ORDERED: HYDROCORTISONE ACETATE 25 MG SUPP PR PRN (09:24)
[2021-06-27] MEDS ORDERED: SUPERCREAM 0.870% 15 GM JAR EXT PRN (09:24)
[2021-06-27] MEDS ORDERED: BENZOCAINE 20% AER SPR 82.5 GM CAN EXT PRN (09:24)
[2021-06-27] MEDS ORDERED: MAGNESIUM HYDROXIDE SUSP 30 ML UDC PO PRN (09:24)
[2021-06-27] MEDS ORDERED: SENNA 8.6 MG TAB PO PRN (09:24)
[2021-06-27] MEDS ORDERED: DIPHTHERIA/TETANUS/PERTUSSIS 0.5 ML SYR/VIAL IM ONE (09:24)
[2021-06-27] MEDS ORDERED: ACETAMINOPHEN 500 MG TAB PO PRN (09:28)
--- NOTE | 2021-06-27 09:35 | Post Operative Brief Note ---
PG Immediate Post Op with CF Date of Surgery June 27, 2021 Pre & Post Diagnosis Operation Date: 06/27/21 07:30 Pre-Op Diagnosis: Repeat Caesarean Section;Breech;Desires Sterilization Post-Op Diagnosis: Same; Delivery of a live female child at 0818 ( Main OR 3) I identified the patient and participated in the time-out.: Yes Procedure Operation Date: 06/27/21 07:30 Actual Procedures p Section in LD(Bilateral) - Oswaldo Purdy MD s Bilateral Tubal Ligation - Oswaldo Purdy MD Surgeon Oswaldo Purdy MD Deli Associate Dr Jarquin Estimated Blood Loss 600 Findings Consistent with Post-Op Diagnosis Specimens Specimen Description: A. Placenta-hold B. Cord Blood C. portions of right and left fallopian tubes Drains Gray Catheter
--- NOTE | 2021-06-27 10:02 | Anesthesiology Progress Note ---
Date of Service June 27, 2021 Anesthesia Post Procedure Vital Signs Vital Signs: Temp Pulse Resp BP Pulse Ox 06/27/21 09:59 84 109/58 L 98 06/27/21 09:54 84 97 06/27/21 09:50 80 101/56 L 06/27/21 09:49 77 97 06/27/21 09:44 78 98 06/27/21 09:40 85 102/52 L 06/27/21 09:39 82 98 06/27/21 09:36 82 91 06/27/21 09:33 78 97 06/27/21 09:30 36.7 C 83 20 104/57 L 06/27/21 09:28 89 97 06/27/21 07:05 36.7 C 90 20 129/61 06/27/21 05:49 36.7 C 18 06/27/21 05:43 116 H 121/67 Transfer of Care Handoff Completed per policy Notes Mental Status: alert / awake / arousable and participated in evaluation Patient Amnestic to Procedure: Yes Nausea / Vomiting: adequately controlled Pain: adequately controlled Airway Patency, RR, SpO2: stable & adequate BP & HR: stable & adequate Hydration State: stable & adequate Anesthetic Complications: no major complications apparent and Pt Satisfied with anesthetic care
[2021-06-27] MEDS: OXYTOCIN 20 UNITS in LACTATED RINGER'S 1,000 ML IV SCH ×2 (10:23→18:45)
--- NOTE | 2021-06-27 11:28 | Operative Report (OR) ---
DATE OF PROCEDURE: 06/27/2021 PROCEDURE: Repeat low transverse section with bilateral tubal ligation and lysis of adhesio ns. SURGEON: Oswaldo Purdy MD. ASSISTANTS: Olive Jarquin MD and also Dr. Penelope Mccall, PGY1. PREOPERATIVE DIAGNOSES: 1. Single intrauterine at 39 weeks 0 days gestational age. 2. History of section x1. 3. Body mass index of greater than 50. 4. Breech presentation. POSTOPERATIVE DIAGNOSES: 1. Single intrauterine at 39 weeks 0 days gestational age. 2. History of section x1. 3. Body mass index of greater than 50. 4. Breech presentation. 5. Status post delivery. ESTIMATED BLOOD LOSS: 600 mL. DRAINS: Gray catheter. FLUIDS: Continuous lactated Ringer. URINE OUTPUT: Per Gray catheter. COMPLICATIONS: None. FINDINGS: There was noted to be a viable female infant with weight and Apgars pending. DESCRIPTION OF PROCEDURE: The patient was taken to the operating room after consents were assured. Upon presentation, she was properly identified. Spinal anesthesia was obtained without difficulty. The patient was then prepped and draped in normal sterile fashion. Preprocedural timeout was perform ed, after which the adequate surgical levels were confirmed. A Pfannenstiel incision was then made w ith a knife. This was carried down to underlying fascia with the Bovie. Fascia was then nicked in t he midline with a knife and extended laterally in each direction with pickups and Spencer scissors. The fascia was then grasped with Kochers x2, elevated off the underlying rectus muscles using blunt diss ection and the knife. The inferior aspect of the fascia was grasped with Kochers x2, elevated off th e underlying rectus muscles using blunt dissection and Spencer scissors. The midline was difficult to identify, but after it was able to be identified, it was initially disse cted sharply and then was able to be placed on stretch to provide adequate room for delivery. There was noted to be dense adhesions of the anterior abdominal wall to the uterus at several locations. T hese were gently dissected to assure no critical structures were involved. After the uterus was note d to be free of adhesions, a bladder flap was created and bladder blade was placed. A low transverse uterine incision was then made with a knife and this was carried down to the level o f membranes. The membranes were then ruptured bluntly. There was noted to be clear fluid upon ruptu re. The was noted to have the footling breech and the legs were delivered through the hyster otomy without difficulty, body and shoulders quickly followed. Head of the was also delivere d without difficulty. The cord was then double clamped and cut. was taken over to the [facility] nursery staff for resuscitation and was noted to be vigorous soon after delivery. Cord blood was obtained. Attention was then turned to delivery of placenta, which was delivered intact, 3-vessel co rd, with gentle cord traction and uterine massage. Uterus was then exteriorized. Several passes were made inside to remove any remaining membranes with a dry lap. The uterus was then wrapped in wet lap. The hysterotomy was then reapproximated with 0 Vicryl continuous running locked stitch, which was noted to be hemostatic at the completion of the in itial closure. The desire for tubal ligation was then reconfirmed with the patient and bilateral tub al ligation was performed using the modified [place] technique. The dissected portion of the tube wa s sent to pathology for verification of complete transection and both tubal pedicles were noted to be hemostatic. The hysterotomy was then reinspected and noted to be hemostatic and the uterus was retu rned to maternal abdomen. The right and left pericolic gutters were cleaned of clots and debris. The hysterotomy was then reinspected and noted to be hemostatic. Both tubal pedicles were reinspecte d and noted to be hemostatic. The fascia, muscle and subcutaneous layers were all inspected and note d to be hemostatic. The fascia was then closed with 0 Vicryl with continuous running stitch starting at each lateral apex and continuing to the midline. The subcutaneous layer was then reapproximated in 3 layers with a continuous running 2-0 plain. Skin was reapproximated with 3-0 Vicryl in a subcut icular stitch. Dermabond placed on top. Needle, sponge, and instrument counts were correct at the c ompletion of the case. Both mother and were stable in the immediate post-delivery period. Job ID: [id number]
[2021-06-27] MEDS: SIMETHICONE 80 MG CHEW PO SCH ×2 (18:33→21:20)
[2021-06-27] MEDS ORDERED: NYSTATIN CR 15 GM TUBE EXT SCH (21:00)
[2021-06-27] MEDS: CITALOPRAM 20 MG TAB PO SCH (21:19)
[2021-06-27] MEDS: DOCUSATE SODIUM 100 MG CAP PO SCH (21:20)
[2021-06-28] MEDS: NYSTATIN POWDER 15GM BTL EXT SCH ×2 (01:08→08:28)
[2021-06-28] MEDS ORDERED: KETOROLAC 30 MG/ML VIAL IV PRN (01:11)
[2021-06-28] MEDS ORDERED: diphenhydrAMINE 50 MG/ML VIAL IV PRN (01:11)
[2021-06-28] MEDS ORDERED: DC INTRASPINAL MORPHINE ONE (01:11)
[2021-06-28] MEDS ORDERED: PROMETHAZINE HCL 25 MG in SODIUM CHLORIDE 0.9% 50 ML IV PRN (01:11)
[2021-06-28] MEDS ORDERED: diphenhydrAMINE Capsule 25 MG CAP PO PRN (01:11)
[2021-06-28] MEDS ORDERED: ONDANSETRON INJ 2 MG/ML 2 ML VIAL IV PRN (01:11)
[2021-06-28] MEDS ORDERED: oxyCODONE HCL IR 5 MG TAB (IMMEDIATE RELEASE) PO PRN (01:11)
[2021-06-28] MEDS: IBUPROFEN 600 MG TAB PO PRN ×4 (01:14→17:56)
[2021-06-28] MEDS ORDERED: LACTATED RINGER'S 1,000 ML IV SCH (06:00)
[2021-06-28] MEDS ORDERED: DEXTROSE 5% IV SCH (06:00)
[2021-06-28] MEDS ORDERED: GENTAMICIN SULFATE IV SCH (06:00)
[2021-06-28] MEDS ORDERED: CLINDAMYCIN 900 MG in DEXTROSE 5% 50 ML IV SCH (06:00)
[2021-06-28 06:21] LABS: Basophils # (auto) 0.03 K/uL (0-0.2); Basophils % (auto) 0.2 %; Eosinophils # (auto) 0.17 K/uL (0-0.5); Eosinophils % (auto) 1.2 %; Immature Granulocytes # (auto) 0.19 K/uL (0.00-0.02); Immature Granulocytes % (auto) 1.3 %; Lymphocytes # (auto) 2.33 K/uL (1.2-3.4); Lymphocytes % (auto) 16.3 %; Mean Corpuscular Hemoglobin 30.5 pg (25-34); Mean Corpuscular Hgb Conc 33.3 g/dL (32-36); Mean Corpuscular Volume 91.5 fL (80-100); Monocytes # (auto) 1.21 K/uL (0.11-0.59); Monocytes % (auto) 8.5 %; Neutrophils # (auto) 10.37 K/uL (1.4-6.5); Neutrophils % (auto) 72.5 %; Platelet Count 332 K/uL (130-400); RDW Coefficient of Variation 14.6 % (11.5-14.5); RDW Standard Deviation 48.2 fL (36.4-46.3); Red Blood Count 4.26 M/uL (4.2-5.4)
--- NOTE | 2021-06-28 06:47 | Obstetrical Progress Note ---
Date of Service <Penelope Mccall MD - Last Filed: 06/28/21 07:49> June 28, 2021 Assessment & Plan <Penelope Mccall MD - Last Filed: 06/28/21 07:49> (1) delivery delivered: 25 yo now POD1 from [facility] with BTL at 39 weeks for breech -Continue routine care -Vitals reviewed- HDS, afebrile -Blood type O+, GBS -, Rubella immune -Encourage ambulation -Pain control with Motrin, Tylenol PRN -Regular diet -Monitor bowel function- gas/BMs -Monitor lochia -Nystatin powder ordered for pannus -Hgb 13 -F/u in 6 weeks with OB <Syeda Serrato MD, FACOG - Last Filed: 06/28/21 07:56> (1) delivery delivered: Subjective <Penelope Mccall MD - Last Filed: 06/28/21 07:49> Ambulation: ambulating normally Voiding: no voiding problems Passing Gas:: Yes Diet Tolerance:: regular diet Lochia:: Small Feeding Type:: breast feeding Current Pain Level(1-10): 0 Pt doing well, no acute events or complaints. Has not passed BM yet. Reports minimal soreness around incision site. Review of Systems Denies fevers, chills, dyspnea, chest pain, breast pain, dysuria, headache. Physical Exam <Penelope Mccall MD - Last Filed: 06/28/21 07:49> General: Alert, oriented, no acute distress Cardiac: Regular rate and rhythm, normal S1, S2. No murmurs appreciated. Respiratory: Clear to auscultation b/l with good air flow entry, symmetric chest rise and fall. No wheezes or crackles. No increased work of breathing or accessory muscle use Abdomen: Soft, nontender, nondistended. Fundus firm and palpable at 2 cm below umbilicus. Surgical incision clean and intact without erythema or warmth, minimal clear discharge. Bowel sounds appreciated. No guarding or rebound. Skin: No rashes or lesions Extremities: Warm, dry, well-perfused with capillary refill <2s b/l. No lower extremity edema, erythema or swelling. Negative Issa's sign b/l. Results & Data ([facility]) <Penelope Mccall MD - Last Filed: 06/28/21 07:49> Vital Signs (Past 12 Hours) Vital Signs Temp Pulse Resp BP Pulse Ox 06/28/21 03:20 36.6 C 86 16 118/80 96 06/28/21 01:00 16 95 06/28/21 00:10 16 93 06/27/21 23:25 36.4 C L 80 18 107/63 96 06/27/21 22:25 18 93 06/27/21 21:25 18 94 06/27/21 20:15 18 96 06/27/21 19:45 36.6 C 98 H 18 134/84 96 <Syeda Serrato MD, FACOG - Last Filed: 06/28/21 07:56> Co-Signing Physician Notes Resident Physician Supervision Note: I interviewed and examined the patient. Discussed with Dr. Mccall and agree with findings and plan as documented in the note. Any exceptions or clarifications are listed here: Doing well. Routine ppd 1 care. Gray out and has a few small voids. Encourage ambulation. Documented By: Syeda Serrato MD, FACOG Resident Activity Tracking <Penelope Mccall MD - Last Filed: 06/28/21 07:49> Resident Involvement: Resident Care Provided Care Provided: OB Delivery
[2021-06-28] MEDS ORDERED: FERROUS SULFATE 325 MG TAB PO SCH (08:00)
[2021-06-28] MEDS ORDERED: PRENATAL VITAMIN 1 TAB PO SCH (08:00)
[2021-06-28] MEDS: SIMETHICONE 80 MG CHEW PO SCH ×3 (08:26→17:55)
[2021-06-28] MEDS: DOCUSATE SODIUM 100 MG CAP PO SCH (08:27)
[2021-06-28] MEDS: CITALOPRAM 20 MG TAB PO SCH (08:28)
[2021-06-28] MEDS ORDERED: bisacodyL 5 MG TABEC PO SCH (20:00)
[2021-06-29] MEDS ORDERED: bisacodyL 10 MG SUPP PR PRN (09:24)
--- NOTE | 2021-07-01 15:33 | Discharge Summary (DS) ---
DATE OF DISCHARGE: 06/28/2021 PROCEDURE: Repeat low transverse section with bilateral tubal ligation. HOSPITAL COURSE: The patient was admitted for a scheduled repeat low transverse section, pr ocedure was performed without complication or difficulty. The patient remained in house for approxim ately 24 hours post-procedure and was noted to be stable and meet criteria for discharge. The patien emmy was requesting early discharge and therefore, she was granted to meeting all criteria. The patient was discharged home in stable condition with both written and verbal discharge instructions were pro vided. The patient is scheduled for followup in 6 weeks for routine care and otherwise as needed. Job ID: [id number]
--- NOTE | 2021-07-09 12:51 | Coding Query ---
BMI To promote full compliance with coding requirements relating to patient care, physician participation is requested in all cases of pre coder uncertainty. Please assist us with the question(s) below: Please place an X within the parenthesis (x). If other, please document: BMI greater than 50 was documented in this record for this patient. If the BMI is significant, please check the box that provides a more specific associated diagnosis: ( ) Overweight/Obese ( ) Obesity (x ) Morbid obesity ( ) Obesity Hypoventilation Syndrome (OHS) ( ) Heathy weight, not significant ( ) Other, please specify Thank you for your time, GERMÁN Berg, [facility]
== END 2021-06-28 18:13 | disposition home or self-care (01) | DRG 785 ==
LOC: 4S1 05:32 → EDSTATUS 07:30 → 4S2 11:45
PROC: M.PPTLD (2021-06-27 07:30)